=== PATIENT | male | born 1970 | race Caucasian/White ===

== ENCOUNTER → 2016-11-19 | Outpatient (CLI) | payer BC ==
--- NOTE | 2016-11-19 16:44 | DX ---
Chest, PA and lateral. History: Mild dyspnea. History of testicular cancer. COMPARISON: May 2016 Findings: Heart size is within normal limits. Pulmonary vascularity is normal. The lungs are clear. No evidence of pleural effusion or pneumothorax. Surgical clips are seen in the upper abdomen. Evide nce of prior surgery left shoulder. Impression: No evidence of acute cardiopulmonary abnormality.
== END ==
LOC: FIMAGING 15:57
PROVIDERS: ATTEND Internal Medicine Hematology & Oncology
DX: R06.00 Dyspnea, unspecified (principal); Z85.47 Personal history of malignant neoplasm of testis